=== PATIENT | female | born 1985 | race Hispanic/Latino ===

== ENCOUNTER 2019-07-15 16:29 | Emergency (ER) | payer SELFPAY ==
[~2019-07-15] VITALS: Ht 162.6 cm; Wt 108.9 kg
[2019-07-15] MEDS ORDERED: SODIUM CHLORIDE 0.9% 1000ML 1,000 ML IV STA (16:51)
[2019-07-15] MEDS ORDERED: DONNATAL/LIDOCAINE/MAALOX 30 ML SUSP PO NR ×2 (17:00→17:15)
[2019-07-15 17:49] LABS: BASOPHILS % 0.2 % (0.0-1.0); EOSINOPHILS # (AUTO) 0.2 (0.0-0.4); EOSINOPHILS % 2.7 % (0.0-6.0); HEMATOCRIT 39.2 % (34.2-44.1); HEMOGLOBIN 13.5 g/dL (12.0-16.0); LYMPHOCYTES # (AUTO) 1.4 (1.0-3.2); LYMPHOCYTES % 17.8 % (18.0-39.1); MEAN CORPUSCULAR HEMOGLOBIN 29.5 pg (28-32); MEAN CORPUSCULAR HGB CONC 34.4 g/dL (31-35); MEAN CORPUSCULAR VOLUME 85.8 fL (81-99); MONOCYTES # (AUTO) 0.4 (0.2-0.8); MONOCYTES % 5.2 % (4.4-11.3); NEUTROPHILS % 73.7 % (38.7-80.0); PLATELET COUNT 235 x10e3/uL (140-360); RED BLOOD COUNT 4.57 x10e6/uL (3.6-5.1); RED CELL DISTRIBUTION WIDTH 13.5 % (11.7-14.4)
[2019-07-15 18:04] LABS: ALANINE AMINOTRANSFERASE 16 IU/L (0-55); ALBUMIN 3.6 g/dL (3.5-5.0); ALKALINE PHOSPHATASE 92 IU/L (40-150); ANION GAP 11.6 mmol/L (8-16); BLOOD UREA NITROGEN 9 mg/dL (7-26); BUN/CREATININE RATIO 13 (6-25); CALCIUM 9.2 mg/dL (8.4-10.2); CARBON DIOXIDE 26 mmol/L (22-29); CHLORIDE 105 mmol/L (98-107); CREATININE, SERUM 0.69 mg/dL (0.57-1.11); EST GLOMERULAR FILTRATION RATE > 60 ML/MIN (60-); GLUCOSE 123 mg/dL (74-118); LIPASE 33 U/L (8-78); POTASSIUM 3.6 mmol/L (3.5-5.1); SODIUM 139 mmol/L (136-145)
[2019-07-15 18:34] VITALS: BP 110/52
== END 2019-07-15 18:49 | disposition home or self-care (01) ==
LOC: ER 16:29
DX: R10.13 Epigastric pain (principal); K21.9 Gastro-esophageal reflux disease without esophagitis
CPT/HCPCS: 36415; 80053; 83690; 85025; 99283; J7030

== ENCOUNTER 2020-02-03 11:20 | Emergency (ER) | payer SELFPAY ==
[~2020-02-03] VITALS: Ht 162.6 cm; Wt 108.9 kg
[2020-02-03] MEDS ORDERED: TETRACAINE HCL 0.5% OPTH SOLN 4 ML BTL ONE (11:33)
[2020-02-03] MEDS ORDERED: FLUORESCEIN SOD(OPTH) 1 MG STRP ONE (11:34)
[2020-02-03] MEDS ORDERED: EYE IRRIGATION (OPTH) 120 ML BTL ONE (11:34)
[2020-02-03] MEDS ORDERED: SODIUM CHLORIDE 0.9% 1000ML 1,000 ML ONE (11:43)
[2020-02-03] MEDS ORDERED: SODIUM CHLORIDE 0.9% 1000ML 1,000 ML IV SCH ×2 (11:45→12:45)
[2020-02-03] MEDS ORDERED: TETRAHYDROZOLINE HCL(OPTH) 30 ML BOTTLE OP ONE (11:45)
[2020-02-03] MEDS ORDERED: ERYTHROMYCIN (OPTH) 3.5 GM OINT OP ONE (12:15)
[2020-02-03] MEDS ORDERED: IBUPROFEN 600 MG TAB PO ONE (12:30)
[2020-02-03] MEDS ORDERED: FLUORESCEIN SOD(OPTH) 1 MG STRP OP ONE (12:30)
--- NOTE | 2020-02-03 12:45 | NUR ---
Visual acuity on R eye: 20/40 L eye: 20/20 PH to R eye: 8 PH on L eye: 7
--- NOTE | 2020-02-03 13:25 | NUR ---
Pt received 2 liters NS eye irrigation.
--- NOTE | 2020-02-03 13:36 | NUR ---
PH now 8, erythromycin ointment placed in R eye.
[2020-02-03 14:26] VITALS: BP 118/72
== END 2020-02-03 14:28 | disposition home or self-care (01) ==
LOC: ER 11:20
DX: H10.211 Acute toxic conjunctivitis, right eye (principal); Y99.0 Civilian activity done for income or pay; K21.9 Gastro-esophageal reflux disease without esophagitis
CPT/HCPCS: 99283; J7030

== ENCOUNTER → 2020-10-22 | Outpatient (CLI) | payer OTHER ==
[~2020-10-22] MED LIST: COVID-19 VACC, MRNA(MODERNA)/PF 100 MCG/0.5 ML VIAL IM ONE
== END ==
LOC: VACCPMC 18:00
DX: Z23 Encounter for immunization (principal); Z20.828 Contact with and (suspected) exposure to other viral communicable diseases

== ENCOUNTER → 2020-11-19 | Outpatient (CLI) | payer OTHER | LOC: VACCPMC 13:49 | DX: Z23 Encounter for immunization (principal); Z20.828 Contact with and (suspected) exposure to other viral communicable diseases ==

== ENCOUNTER → 2020-12-29 | Outpatient (CLI) | payer OTHER | LOC: VACCPMC 09:35 | DX: Z23 Encounter for immunization (principal); Z20.822 Contact with and (suspected) exposure to COVID-19 | CPT/HCPCS: 91301 ==

== ENCOUNTER → 2021-08-21 | Outpatient (CLI) | payer OTHER | LOC: VACCPMC 07:27 | DX: Z23 Encounter for immunization (principal); Z20.822 Contact with and (suspected) exposure to COVID-19 ==

== ENCOUNTER 2023-11-11 13:25 | Emergency (ER) | payer BC ==
[~2023-11-11] VITALS: Ht 162.6 cm; Wt 108.9 kg
[2023-11-11 14:02] VITALS: O2SAT 98
[2023-11-11] MEDS ORDERED: FLUORESCEIN SOD(OPTH) 1 MG STRP ONE (14:07)
[2023-11-11] MEDS ORDERED: AUGMENTIN 500-1 EACH PO (14:09)
[2023-11-11] MEDS ORDERED: PREDNISONE20 MG PO (14:09)
[2023-11-11] MEDS ORDERED: ULTRAM 50MG50 MG PO (14:09)
== END 2023-11-11 14:17 | disposition home or self-care (01) ==
LOC: FSED 13:30
DX: H10.9 Unspecified conjunctivitis (principal); K21.9 Gastro-esophageal reflux disease without esophagitis
CPT/HCPCS: 99282

== ENCOUNTER 2024-08-01 17:23 | Emergency (ER) | payer BC, MEDICARE ==
[~2024-08-01] VITALS: Ht 162.6 cm; Wt 108.9 kg
[~2024-08-01 17:23] MED LIST changes: +AUGMENTIN 500-1 EACH PO; -COVID-19 VACC, MRNA(MODERNA)/PF 100 MCG/0.5 ML VIAL IM ONE; +PREDNISONE20 MG PO; +ULTRAM 50MG50 MG PO
[2024-08-01 17:30] VITALS: TEMP 99.3
[2024-08-01 17:46] LABS: BASOPHILS % 0.2 % (0.0-1.0); EOSINOPHILS # (AUTO) 0.2 (0.0-0.4); EOSINOPHILS % 2.6 % (0.0-6.0); LYMPHOCYTES # (AUTO) 1.9 (1.0-3.2); LYMPHOCYTES % 29.7 % (18.0-39.1); MEAN CORPUSCULAR HGB CONC 33.3 g/dL (31-35); MEAN CORPUSCULAR VOLUME 89.9 fL (81-99); MONOCYTES # (AUTO) 0.4 (0.2-0.8); MONOCYTES % 6.1 % (4.4-11.3); NEUTROPHILS # (AUTO) 3.8 (2.1-6.9); NEUTROPHILS % 61.1 % (38.7-80.0); PLATELET COUNT 217 x10e3/uL (140-360); RED BLOOD COUNT 4.67 x10e6/uL (3.6-5.1); RED CELL DISTRIBUTION WIDTH 13.1 % (11.7-14.4); WHITE BLOOD COUNT 6.26 x10e3/uL (4.8-10.8)
[2024-08-01 18:03] LABS: ALBUMIN 3.8 g/dL (3.5-5.0); ANION GAP 13.5 mmol/L (8-16); BILIRUBIN,TOTAL 0.5 mg/dL (0.2-1.2); CALCIUM 9.4 mg/dL (8.4-10.2); CREATININE, SERUM 0.74 mg/dL (0.57-1.11); POTASSIUM 3.5 mmol/L (3.5-5.1); TOTAL PROTEIN 7.6 g/dL (6.5-8.1)
[2024-08-01] MEDS: FENTANYL CITRATE/PF 100MCG/2 ML INJ IV PRN (18:03)
[2024-08-01] MEDS: ONDANSETRON HCL INJ 2MG/ML 2ML 2 MG/ML VIAL IV STA ×2 (18:03→18:20)
[2024-08-01 19:00] VITALS: PULSE 72; RESP 14; O2SAT 100
[2024-08-01] MEDS ORDERED: ONDANSETRON ODT4 MG SL (19:08)
[2024-08-01] MEDS ORDERED: PANTOPRAZOLE SO40 MG PO (19:08)
== END 2024-08-01 19:20 | disposition home or self-care (01) ==
LOC: ER 17:40
DX: R10.13 Epigastric pain (principal); K29.70 Gastritis, unspecified, without bleeding
CPT/HCPCS: 36415; 80053; 83690; 84702; 85025; 93005; 99283; J2405; J2470; J3010

== ENCOUNTER → 2024-08-21 | Outpatient (REF) | payer BC ==
[~2024-08-21] MED LIST changes: +ONDANSETRON ODT4 MG SL; +PANTOPRAZOLE SO40 MG PO
== END ==
LOC: US 08:09
PROVIDERS: ATTEND Nurse Practitioner
DX: R10.10 Upper abdominal pain, unspecified (principal)
CPT/HCPCS: 76700

== ENCOUNTER → 2024-09-11 | Outpatient (REF) | payer BC | LOC: NM 08:08 | PROVIDERS: ATTEND Internal Medicine Gastroenterology | DX: R10.13 Epigastric pain (principal) | CPT/HCPCS: 78227; A9537 ==

== ENCOUNTER 2024-10-07 22:05 | Emergency (ER) | payer BC ==
[~2024-10-07] VITALS: Ht 162.6 cm; Wt 110.7 kg
[2024-10-07 22:19] VITALS: TEMP 98.6
[2024-10-07 22:51] LABS: BASOPHILS % 0.3 % (0.0-1.0); EOSINOPHILS # (AUTO) 0.3 (0.0-0.4); EOSINOPHILS % 3.3 % (0.0-6.0); HEMATOCRIT 39.8 % (34.2-44.1); HEMOGLOBIN 12.7 g/dL (12.0-16.0); LYMPHOCYTES # (AUTO) 2.6 (1.0-3.2); LYMPHOCYTES % 32.4 % (18.0-39.1); MEAN CORPUSCULAR HEMOGLOBIN 29.4 pg (28-32); MEAN CORPUSCULAR HGB CONC 31.9 g/dL (31-35); MEAN CORPUSCULAR VOLUME 92.1 fL (81-99); MONOCYTES # (AUTO) 0.6 (0.2-0.8); MONOCYTES % 7.1 % (4.4-11.3); NEUTROPHILS # (AUTO) 4.5 (2.1-6.9); NEUTROPHILS % 56.6 % (38.7-80.0); PLATELET COUNT 254 x10e3/uL (140-360); RED BLOOD COUNT 4.32 x10e6/uL (3.6-5.1); RED CELL DISTRIBUTION WIDTH 13.1 % (11.7-14.4); WHITE BLOOD COUNT 7.87 x10e3/uL (4.8-10.8)
[2024-10-07 23:14] LABS: ALANINE AMINOTRANSFERASE 15 IU/L (0-55); ALBUMIN 3.9 g/dL (3.5-5.0); ALBUMIN/GLOBULIN RATIO 1.1 (0.8-2.0); ALKALINE PHOSPHATASE 97 IU/L (40-150); ANION GAP 14.2 mmol/L (8-16); BILIRUBIN,TOTAL 0.4 mg/dL (0.2-1.2); BLOOD UREA NITROGEN 10 mg/dL (7-26); BUN/CREATININE RATIO 14 (6-25); CALCIUM 9.3 mg/dL (8.4-10.2); CARBON DIOXIDE 24 mmol/L (22-29); CHLORIDE 104 mmol/L (98-107); CREATININE, SERUM 0.71 mg/dL (0.57-1.11); EST GLOMERULAR FILTRATION RATE 111 ML/MIN (>=60); GLUCOSE 127 mg/dL (74-118); LIPASE 50 U/L (8-78); POTASSIUM 4.2 mmol/L (3.5-5.1); SODIUM 138 mmol/L (136-145); TOTAL PROTEIN 7.6 g/dL (6.5-8.1)
[2024-10-07] MEDS: ONDANSETRON HCL INJ 2MG/ML 2ML 2 MG/ML VIAL IV STA (23:16)
[2024-10-07] MEDS: FAMOTIDINE 20 MG/2 ML VIAL IV STA (23:16)
[2024-10-07] MEDS: KETOROLAC TROMETHAMINE 30 MG/ML VIAL IV STA (23:16)
[2024-10-07] MEDS: SODIUM CHLORIDE 0.9% 1000ML 1,000 ML IV ONE (23:17)
[2024-10-08 01:05] VITALS: PULSE 77; RESP 19
[2024-10-08] MEDS: Morphine 2mg Syringe 2 MG/ML SYR IV ONE (01:33)
[2024-10-08] MEDS ORDERED: METOCLOPRAMIDE HCL 10 MG/2ML VIAL ONE (01:38)
[2024-10-08] MEDS: METOCLOPRAMIDE HCL 10 MG/2ML VIAL IV ONE (01:40)
[2024-10-08 02:47] VITALS: BP 107/64; PULSE 84; RESP 17; TEMP 98.3; O2SAT 97
== END 2024-10-08 02:50 | disposition home or self-care (01) ==
LOC: ER 22:15
DX: R10.11 Right upper quadrant pain (principal); K80.50 Calculus of bile duct without cholangitis or cholecystitis without obstruction; R11.2 Nausea with vomiting, unspecified; R73.03 Prediabetes
CPT/HCPCS: 36415; 76705; 80053; 83690; 84702; 85025; 99283; J1885; J2270; J2405; J2765; J7030

== ENCOUNTER → 2024-10-23 | Day surgery (SDC) | payer BC ==
[~2024-10-23] MED LIST changes: +DEXAMETHASONE SOD PHOS INJ 4 MG/ML SDV ONE; +FAMOTIDINE 20 MG/2 ML VIAL IV ONE; +FENTANYL CITRATE/PF 100MCG/2 ML INJ ONE; +GLYCOPYRROLATE INJ 0.2 MG/ML VIAL ONE; +HYDROCODONE/APAP 7.5MG-325MG 1 EA TAB ONE; +KETOROLAC TROMETHAMINE 30 MG/ML VIAL ONE; +LIDOCAINE HCL 2% LOCAL INJ 5 ML SDV VIAL INJ ONE; +MIDAZOLAM HCL 2 MG/2 ML VIAL ONE; +MULTI-VITAMIN1 EACH PO; +NEOSTIGMINE 1 MG/ML 10ML VIAL ONE; +ONDANSETRON HCL INJ 2MG/ML 2ML 2 MG/ML VIAL ONE; +PROPOFOL IV EMULSION 10 MG/ML 20 ML VIAL ONE; +ROCURONIUM BROMIDE 1 ML IV ONE; +SUGAMMADEX SODIUM 200 MG/2 ML VIAL IV ONE
[2024-10-23] MEDS: LACTATED RINGER'S 1,000 ML ONE (10:44)
[2024-10-23 11:00] LABS: BASOPHILS % 0.3 % (0.0-1.0); EOSINOPHILS # (AUTO) 0.3 (0.0-0.4); EOSINOPHILS % 3.9 % (0.0-6.0); HEMATOCRIT 42.2 % (34.2-44.1); HEMOGLOBIN 13.4 g/dL (12.0-16.0); LYMPHOCYTES # (AUTO) 1.9 (1.0-3.2); LYMPHOCYTES % 28.6 % (18.0-39.1); MEAN CORPUSCULAR HEMOGLOBIN 29.5 pg (28-32); MEAN CORPUSCULAR HGB CONC 31.8 g/dL (31-35); MONOCYTES # (AUTO) 0.4 (0.2-0.8); MONOCYTES % 6.4 % (4.4-11.3); NEUTROPHILS # (AUTO) 4.1 (2.1-6.9); NEUTROPHILS % 60.7 % (38.7-80.0); PLATELET COUNT 220 x10e3/uL (140-360); RED BLOOD COUNT 4.54 x10e6/uL (3.6-5.1); RED CELL DISTRIBUTION WIDTH 13.2 % (11.7-14.4); WHITE BLOOD COUNT 6.72 x10e3/uL (4.8-10.8)
[2024-10-23 11:34] LABS: ALBUMIN 3.8 g/dL (3.5-5.0); ALBUMIN/GLOBULIN RATIO 1.1 (0.8-2.0); ANION GAP 13.2 mmol/L (8-16); BILIRUBIN,TOTAL 0.4 mg/dL (0.2-1.2); CALCIUM 9.2 mg/dL (8.4-10.2); CREATININE, SERUM 0.68 mg/dL (0.57-1.11); POTASSIUM 4.2 mmol/L (3.5-5.1); TOTAL PROTEIN 7.4 g/dL (6.5-8.1)
[2024-10-23 15:03] VITALS: TEMP 99
[2024-10-23 16:00] VITALS: BP 143/94; PULSE 75; RESP 18; O2SAT 100
== END | disposition home or self-care (01) ==
LOC: OR 10:15
PROVIDERS: ATTEND Surgery
DX: K80.10 Calculus of gallbladder with chronic cholecystitis without obstruction (principal); K76.0 Fatty (change of) liver, not elsewhere classified; K74.00 Hepatic fibrosis, unspecified; E66.01 Morbid (severe) obesity due to excess calories
CPT/HCPCS: 36415; 47562; 80053; 81025; 85025; 88304; J1100; J1885; J2003; J2250; J2405; J2704; J2710; J3010; J7121

== ENCOUNTER 2025-01-13 12:37 | Emergency (ER) | payer BC ==
[~2025-01-13] VITALS: Ht 162.6 cm; Wt 110.7 kg
[~2025-01-13 12:37] MED LIST changes: -DEXAMETHASONE SOD PHOS INJ 4 MG/ML SDV ONE; -FAMOTIDINE 20 MG/2 ML VIAL IV ONE; -FENTANYL CITRATE/PF 100MCG/2 ML INJ ONE; -GLYCOPYRROLATE INJ 0.2 MG/ML VIAL ONE; -HYDROCODONE/APAP 7.5MG-325MG 1 EA TAB ONE; -KETOROLAC TROMETHAMINE 30 MG/ML VIAL ONE; -LIDOCAINE HCL 2% LOCAL INJ 5 ML SDV VIAL INJ ONE; -MIDAZOLAM HCL 2 MG/2 ML VIAL ONE; -NEOSTIGMINE 1 MG/ML 10ML VIAL ONE; -ONDANSETRON HCL INJ 2MG/ML 2ML 2 MG/ML VIAL ONE; -PROPOFOL IV EMULSION 10 MG/ML 20 ML VIAL ONE; -ROCURONIUM BROMIDE 1 ML IV ONE; -SUGAMMADEX SODIUM 200 MG/2 ML VIAL IV ONE
[2025-01-13 12:45] VITALS: PULSE 77; RESP 18; TEMP 97.9
[2025-01-13 14:22] VITALS: BP 134/77; PULSE 70; RESP 19; O2SAT 98
== END 2025-01-13 14:24 | disposition home or self-care (01) ==
LOC: FSED 12:41
DX: R20.2 Paresthesia of skin (principal); R20.0 Anesthesia of skin; R73.03 Prediabetes
CPT/HCPCS: 70450; 71046; 72125; 80053; 80076; 81003; 81025; 83880; 84484; 85025; 93005; 99284